=== PATIENT | male | born 1950 | race Caucasian/White ===

== ENCOUNTER → 2023-09-06 11:57 | Outpatient (REF) | payer MEDICARE, BC, SELFPAY | LOC: RAD 11:57 | PROVIDERS: ATTENDING PHYSICIAN Nurse Practitioner Family | DX: R06.02 Shortness of breath (principal) | CPT/HCPCS: 71046 ==

== ENCOUNTER → 2024-02-20 13:00 | Outpatient (REF) | payer MEDICARE, BC, SELFPAY | LOC: RCS 13:00 | PROVIDERS: ATTENDING PHYSICIAN Internal Medicine Cardiovascular Disease; FAMILY PHYSICIAN Family Medicine | DX: R06.09 Other forms of dyspnea (principal) | CPT/HCPCS: 93306 ==

== ENCOUNTER → 2024-02-26 10:32 | Outpatient (REF) | payer MEDICARE, BC, SELFPAY | LOC: DHCBC/DCA 10:32 | PROVIDERS: ATTENDING PHYSICIAN Internal Medicine Cardiovascular Disease; FAMILY PHYSICIAN Family Medicine | DX: R06.09 Other forms of dyspnea (principal) | CPT/HCPCS: 78452; 93017; A9500 ==

== ENCOUNTER 2025-03-17 06:22 | Day surgery (SDC) | payer MEDICARE, BC, SELFPAY | END 2025-03-17 13:32 | disposition home or self-care (01) | LOC: GI 06:22 | PROVIDERS: ATTENDING PHYSICIAN Internal Medicine | DX: R19.4 Change in bowel habit (principal); K57.30 Diverticulosis of large intestine without perforation or abscess without bleeding; K64.8 Other hemorrhoids; K63.3 Ulcer of intestine | CPT/HCPCS: 45380; 88305 ==